=== PATIENT | female | born 1980 | race African-American/Black ===

== ENCOUNTER 2019-04-18 16:45 | Emergency (ER) | payer BC ==
--- NOTE | 2019-04-18 17:02 | ER Document Report ---
ED Medical Screen (RME) - General Chief Complaint: Abdominal Pain Stated Complaint: ABDOMINAL PAIN,VAGINAL BLEEDING Time Seen by Provider: 04/18/19 16:56 Primary Care Provider: DANAE ROMERO MD [Primary Care Provider] - Follow up as needed Notes: 38-year-old female presents to ED for complaint of lower abdominal pain. She stated the pain was very bad in her lower abdomen and that she felt like she had to go to the bathroom. She went to the bathroom and she had stool that was kind of a reddish color. She thought it was just the Bernardo-Aid that she drink and did not think anything of it. She stated then at 6 PM she noticed again that the stool was red was wondering why the Bernardo-Aid was still color in her stool. She states every time she is gone to the bathroom since then it is still been red now when she wipes her bottom the paper is light pink and she has become more concerned because she knows the Bernardo-Aid cannot stain her stool this long. She states the pain is pretty severe. States her pain level is a 4 and sharp. She states she is used to abdominal pain cramping with her cycle but this is very sharp. Not had any colonoscopies in the past. Friday night on the way home from work she felt nauseated and vomited has not been sick since then. I have greeted and performed a rapid initial assessment of this patient. A comprehensive ED assessment and evaluation of the patient, analysis of test results and completion of medical decision making process will be conducted by an additional ED providers. TRAVEL OUTSIDE OF THE [place] IN LAST 30 DAYS: No - Related Data Allergies/Adverse Reactions: Sulfa (Sulfonamide Antibiotics) Allergy (Verified 05/04/14 09:04) Past Medical History Neurological Medical History: Reports: Hx Migraine - Immunizations Hx Diphtheria, Pertussis, Tetanus Vaccination: Yes Doctor's Discharge - Discharge Referrals: DANAE ROMERO MD [Primary Care Provider] - Follow up as needed
[2019-04-18] MEDS ORDERED: NORMAL SALINE 1000 ML 1,000 ML IV ONE (17:36)
[2019-04-18 17:50] LABS: ABSOLUTE LYMPHOCYTES (AUTO) 1.6 10^3/uL (0.5-4.7); ABSOLUTE MONOCYTES (AUTO) 0.5 10^3/uL (0.1-1.4); BASOPHILS % (AUTO) 0.3 % (0-2); EOSINOPHILS % (AUTO) 0.4 % (0-6); HEMATOCRIT 31.5 % (36.0-47.0); HEMOGLOBIN 10.3 g/dL (12.0-15.5); LYMPHOCYTES % (AUTO) 19.4 % (13-45); MEAN CORPUSCULAR HEMOGLOBIN 26.8 pg (27.0-33.4); MEAN CORPUSCULAR HGB CONC 32.7 g/dL (32.0-36.0); MEAN CORPUSCULAR VOLUME 82 fl (80-97); MONOCYTES % (AUTO) 6.2 % (3-13); PLATELET COUNT 368 10^3/uL (150-450); RED BLOOD COUNT 3.84 10^6/uL (3.72-5.28); RED CELL DISTRIBUTION WIDTH 15.2 % (11.5-14.0); SEGMENTED NEUTROPHILS % (AUTO) 73.7 % (42-78); TOTAL CELLS COUNTED % (AUTO) 100 %; WHITE BLOOD COUNT 8.2 10^3/uL (4.0-10.5)
[2019-04-18 17:51] LABS: INTERNATIONAL RATION (INR) 1.04; PROTHROMBIN TIME 13.6 SEC (11.4-15.4)
[2019-04-18 17:52] LABS: PARTIAL THROMBOPLASTIN TIME 22.7 SEC (23.5-35.8)
[2019-04-18 18:02] LABS: ALBUMIN 4.3 g/dL (3.5-5.0); ALKALINE PHOSPHATASE 63 U/L (38-126); ANION GAP 9 (5-19); ASPARTATE AMINO TRANSFERASE 23 U/L (14-36); BILIRUBIN,TOTAL 0.4 mg/dL (0.2-1.3); BLOOD UREA NITROGEN 7 mg/dL (7-20); CALCIUM 9.1 mg/dL (8.4-10.2); CARBON DIOXIDE 28 mmol/L (22-30); CHLORIDE 102 mmol/L (98-107); GLUCOSE 111 mg/dL (75-110); POTASSIUM 3.8 mmol/L (3.6-5.0); TOTAL PROTEIN 7.8 g/dL (6.3-8.2)
--- NOTE | 2019-04-18 18:21 | ER Document Report ---
ED GI/ - General Chief Complaint: Abdominal Pain Stated Complaint: ABDOMINAL PAIN,VAGINAL BLEEDING Time Seen by Provider: 04/18/19 17:18 Primary Care Provider: DANAE ROMERO MD [Primary Care Provider] - Follow up as needed MAGAN WHITT MD [ACTIVE STAFF] - Follow up as needed APPLE CHANEL MD [ACTIVE STAFF] - Follow up as needed VELIA BARTON MD [ACTIVE STAFF] - Follow up as needed Mode of Arrival: Ambulatory Information source: Patient Notes: Patient presents complaining of diarrhea that started last night. Patient states that she was having bowel movements about every 30 minutes. Patient states that when she was sleeping she not have any diarrhea symptoms although when she woke up today she continued to have them about every 30 minutes. Patient states that now she has had pelvic cramping prior to having bowel movements that are mostly blood. Patient does report feeling dizzy. Patient denies any fever or urinary symptoms. Patient denies any nausea or vomiting. Patient denies any previous history of any hemorrhoids or inflammatory bowel disease. TRAVEL OUTSIDE OF THE [place] IN LAST 30 DAYS: No - HPI Patient complains to provider of: Abdominal pain, Diarrhea. No: Vomiting Onset: Yesterday Timing/Duration: Waxing and waning Quality of pain: Cramping Pain Level: 2 Location: Pelvis Associated symptoms: Blood in stool, Diarrhea. 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 denies: Fever, Recent illness EENT: No symptoms reported Cardiovascular: Dizziness. denies: Chest pain, Palpitations, Heart racing, Syncope, Lightheaded Respiratory: No symptoms reported Gastrointestinal: Abdominal pain, Diarrhea, Blood streaked bowels. denies: Nausea, Vomiting, Constipation, Black stools Genitourinary: No symptoms reported. denies: Dysuria, Flank pain Female Genitourinary: No symptoms reported. denies: Vaginal discharge, Vaginal bleeding Musculoskeletal: No symptoms reported. denies: Back pain Skin: No symptoms reported Hematologic/Lymphatic: No symptoms reported. denies: Blood clots, Easy bleeding, Easy bruising Neurological/Psychological: No symptoms reported. denies: Weakness Physical Exam - Vital signs Vitals: Temp Pulse Resp BP Pulse Ox 99.3 F 82 20 144/76 H 100 04/18/19 17:02 04/18/19 17:02 04/18/19 17:02 04/18/19 17:02 04/18/19 17:02 - General General appearance: Appears well, Alert In distress: None - HEENT Head: Normocephalic, Atraumatic Eyes: Normal Conjunctiva: Normal Nasal: Normal Mouth/Lips: Normal Mucous membranes: Normal Neck: Normal, Supple. No: Lymphadenopathy - Respiratory Respiratory status: No respiratory distress Chest status: Nontender Breath sounds: Normal. No: Rales, Rhonchi, Stridor, Wheezing Chest palpation: Normal - Cardiovascular Rhythm: Regular Heart sounds: S1 appreciated, S2 appreciated - Abdominal Inspection: Normal Distension: No distension Bowel sounds: Normal Tenderness: Nontender Organomegaly: No organomegaly - Rectal Tenderness: No Stool: See lab result. No: Bloody Hemorrhoids: None Notes: SAL Liriano as standby - Back Back: Normal, Nontender. No: CVA tenderness - Extremities General upper extremity: Normal inspection, Normal strength General lower extremity: Normal inspection, Normal strength - Neurological Neuro grossly intact: Yes Cognition: Normal Dickinson Coma Scale Eye Opening: Spontaneous Dickinson Coma Scale Verbal: Oriented Dickinson Coma Scale Motor: Obeys Commands Emerita Coma Scale Total: 15 - Psychological Associated symptoms: Normal affect, Normal mood - Skin Skin Temperature: Warm Skin Moisture: Dry Skin Color: Normal Course - Re-evaluation Re-evalutation: 04/18/19 18:00 On repeat exam patient's abdomen is soft, nontender. Patient has not had any additional bloody stools at this time. 04/18/19 19:[address] Mckeon regarding patient presentation and diagnostic evaluation. Patient with stable vital signs and an H&H at this time. Dr. Mckeon agrees with symptomatic management and plan for discharge at this time. Discussed plan of care with patient, patient became upset as she is concerned about her pelvic cramping. Patient states that she only has intermittent cramping about every 30 to 40 minutes and then it resolves after she has a stool. Patient presents with likely diarrheal illness. Patient without any other abnormal bleeding or bruising. Patient without any nausea or vomiting, and abdominal tenderness is intermittent and is only prior to diarrhea episodes. Discussed with patient that I have low suspicion that she has any type of inflammatory bowel presentation, no concern for obstruction or appendicitis. No concern for diverticulitis or abscess at this time. Patient without any anal fissure, obvious internal hemorrhoid, external hemorrhoid or perianal abscess. Patient encouraged to follow-up with a software test analyst for any persistent problems. Patient encouraged to return immediately for any concerns about dehydration, increased blood in stool, fever, vomiting or any new or worrisome symptoms. 04/18/19 19:28 Patient with leukocyte esterase, white blood cells and small amount of blood noted on urinalysis. Patient does have lower pelvic tenderness and would like antibiotic for the urine at this time. Will obtain urine culture as well. 04/18/19 19:35 Patient refused to take the Imodium here. Provider to bedside to explain rationale for ordering this medication. Patient refused to make eye contact at this time. Attempted to discuss with patient rationale for medications that were ordered. Offered to have another provider come and evaluate patient and speak with her about any of her concerns at this time, patient declines. Again consulted with Dr. Mckeon regarding patient presentation, labs, vital signs and evaluation reviewed. No additional testing advised at this time. 04/18/19 20:23 Wrong pharmacy was entered whenever patient's initial prescription was E scribed. RN states that she will call the pharmacy to cancel the initial prescription. Patient's prescription was reentered and E scribed to her requested pharmacy. - Vital Signs Vital signs: Temp Pulse Resp BP Pulse Ox 98.8 F 77 16 123/79 100 04/18/19 19:04 04/18/19 19:04 04/18/19 19:04 04/18/19 19:04 04/18/19 19:04 - Laboratory Result Diagrams: 04/18/19 17:19 04/18/19 17:19 Laboratory results interpreted by me: 04/18/19 04/18/19 04/18/19 17:14 17:19 17:19 Hgb 10.3 L Hct 31.5 L MCH 26.8 L RDW 15.2 H APTT 22.7 L Glucose 111 H Urine Protein Urine Blood Leukocyte Esterase Rfl 04/18/19 18:20 Hgb Hct MCH RDW APTT Glucose Urine Protein 30 H Urine Blood SMALL H Leukocyte Esterase Rfl SMALL H 04/18/19 19:22 Labs- Entire Visit 04/18/19 04/18/19 04/18/19 17:14 17:19 17:19 WBC 8.2 RBC 3.84 Hgb 10.3 L Hct 31.5 L MCV 82 MCH 26.8 L MCHC 32.7 RDW 15.2 H Plt Count 368 Lymph % (Auto) 19.4 [place] % (Auto) 6.2 Eos % (Auto) 0.4 Baso % (Auto) 0.3 Absolute Neuts (auto) 6.0 Absolute Lymphs (auto) 1.6 Absolute Monos (auto) 0.5 Absolute Eos (auto) 0.0 Absolute Basos (auto) 0.0 Seg Neutrophils % 73.7 PT 13.6 INR 1.04 APTT 22.7 L Sodium 138.6 Potassium 3.8 Chloride 102 Carbon Dioxide 28 Anion Gap 9 BUN 7 Creatinine 0.71 Est GFR ( Amer) > 60 Est GFR (MDRD) Non-Af > 60 Glucose 111 H Calcium 9.1 Total Bilirubin 0.4 Direct Bilirubin 0.0 Neonat Total Bilirubin Not Reportable Neonat Direct Bilirubin Not Reportable Neonat Indirect Bili Not Reportable AST 23 ALT 16 Alkaline Phosphatase 63 Total Protein 7.8 Albumin 4.3 Lipase 147.6 Serum HCG, Qual Urine Color Urine Appearance Urine pH Ur Specific Atkins Urine Protein Urine Glucose (UA) Urine Ketones Urine Blood Urine Nitrite (Reflex) Urine Bilirubin Urine Urobilinogen Leukocyte Esterase Rfl Urine RBC (Auto) U Hyaline Cast (Auto) Urine WBC (Reflex) Squamous Epi Cells Auto Urine Mucus (Auto) Urine Ascorbic Acid POC Stool Occult Blood Blood Type Antibody Screen 04/18/19 04/18/19 04/18/19 17:19 17:19 18:10 WBC RBC Hgb Hct MCV MCH MCHC RDW Plt Count Lymph % (Auto) [place] % (Auto) Eos % (Auto) Baso % (Auto) Absolute Neuts (auto) Absolute Lymphs (auto) Absolute Monos (auto) Absolute Eos (auto) Absolute Basos (auto) Seg Neutrophils % PT INR APTT Sodium Potassium Chloride Carbon Dioxide Anion Gap BUN Creatinine Est GFR ( Amer) Est GFR (MDRD) Non-Af Glucose Calcium Total Bilirubin Direct Bilirubin Neonat Total Bilirubin Neonat Direct Bilirubin Neonat Indirect Bili AST ALT Alkaline Phosphatase Total Protein Albumin Lipase Serum HCG, Qual NEGATIVE Urine Color Urine Appearance Urine pH Ur Specific Atkins Urine Protein Urine Glucose (UA) Urine Ketones Urine Blood Urine Nitrite (Reflex) Urine Bilirubin Urine Urobilinogen Leukocyte Esterase Rfl Urine RBC (Auto) U Hyaline Cast (Auto) Urine WBC (Reflex) Squamous Epi Cells Auto Urine Mucus (Auto) Urine Ascorbic Acid POC Stool Occult Blood POSITIVE Blood Type A POSITIVE Antibody Screen NEGATIVE 04/18/19 18:20 WBC RBC Hgb Hct MCV MCH MCHC RDW Plt Count Lymph % (Auto) [place] % (Auto) Eos % (Auto) Baso % (Auto) Absolute Neuts (auto) Absolute Lymphs (auto) Absolute Monos (auto) Absolute Eos (auto) Absolute Basos (auto) Seg Neutrophils % PT INR APTT Sodium Potassium Chloride Carbon Dioxide Anion Gap BUN Creatinine Est GFR ( Amer) Est GFR (MDRD) Non-Af Glucose Calcium Total Bilirubin Direct Bilirubin Neonat Total Bilirubin Neonat Direct Bilirubin Neonat Indirect Bili AST ALT Alkaline Phosphatase Total Protein Albumin Lipase Serum HCG, Qual Urine Color YELLOW Urine Appearance SLIGHTLY-CLOUDY Urine pH 5.0 Ur Specific Atkins 1.026 Urine Protein 30 H Urine Glucose (UA) NEGATIVE Urine Ketones NEGATIVE Urine Blood SMALL H Urine Nitrite (Reflex) NEGATIVE Urine Bilirubin NEGATIVE Urine Urobilinogen NEGATIVE Leukocyte Esterase Rfl SMALL H Urine RBC (Auto) 1 U Hyaline Cast (Auto) 1 Urine WBC (Reflex) 17 Squamous Epi Cells Auto 11 Urine Mucus (Auto) MANY Urine Ascorbic Acid NEGATIVE POC Stool Occult Blood Blood Type Antibody Screen Discharge - Discharge Clinical Impression: Blood in stool, Abdominal cramping Diarrhea Qualifiers: Diarrhea type: unspecified type Qualified Code(s): R19.7 - Diarrhea, unspecified UTI (urinary tract infection) Qualifiers: Urinary tract infection type: site unspecified Hematuria presence: with hematuria Qualified Code(s): N39.0 - Urinary tract infection, site not specified Condition: Stable Disposition: HOME, SELF-CARE Instructions: Antispasmodics ([facility]), Cephalexin ([facility]), Urinary Tract Infection ([facility]) Additional Instructions: Return immediately for any new or worsening symptoms: Fever, increased pain, increased stool frequency, increased blood in stool, vomiting, any concerns about dehydration or any new or worsening symptoms Followup with your primary care provider, call tomorrow to make a followup appointment You may need to follow-up with a software test analyst for any persistent concerns about blood in the stool Take Imodium naso-jde-sdeiums as directed to help with your diarrhea/loose stool symptoms DIARRHEA, NON-SPECIFIC: Diarrhea means frequent, watery stools. There are many causes. Any problem that keeps the intestinal tract from absorbing water from the stool can lead to diarrhea. A sudden new diarrhea problem is usually caused by a virus, food sensitivity, toxic bacteria, or drugs. In this case, we expect the problem to go away soon. Testing is done only if you seem seriously ill from the diarrhea. If you have chronic diarrhea, or diarrhea that keeps coming back, we need to find out why. Chronic diarrhea can be due to inflammation of the bowels such as Crohn's disease or ulcerative colitis, food sensitivity such as intolerance to lactose or wheat protein, irritable bowel syndrome, and other problems. If your diarrhea is a significant problem but it's not clear why you have it, we'll refer you to a specialist for further testing. During an episode of diarrhea, drink small amounts (two to six ounces) of clear liquids (soft drinks, sport drinks, herb teas, broth, etc). Take fluids frequently to prevent dehydration. It's usually not a problem to take mild anti- diarrhea medication such as Kaopectate or Pepto-Bismol. As the diarrhea eases, advance to small amounts of bland food (mashed potato, toast) for 24 hours. Call the physician if blood appears in your vomit or stool, if vomiting lasts longer than 24 hours, if the abdominal pain worsens or becomes localized to one area, if you develop high fever, or if you become lightheaded and weak. INTRAVENOUS (I V) FLUIDS: As part of your care today, you received intravenous (IV) fluids. IV fluids are administered to patients who are dehydrated or to those who have certain chemical (electrolyte) abnormalities that need correcting. FOLLOW-UP CARE: If you have been referred to a physician for follow-up care, call the physicians office for an appointment as you were instructed or within the next two days. If you experience worsening or a significant change in your symptoms, notify the physician immediately or return to the Emergency Department at any time for re-evaluation. Prescriptions: Dicyclomine HCl [Bentyl 20 mg Tablet] 20 mg PO QID PRN #12 tablet PRN Reason: Cephalexin Monohydrate [Keflex 500 mg Capsule] 500 mg PO Q6H 5 Days #10 capsule Referrals: DANAE ROMERO MD [Primary Care Provider] - Follow up as needed VELIA BARTON MD [ACTIVE STAFF] - Follow up as needed APPLE CHANEL MD [ACTIVE STAFF] - Follow up as needed MAGAN WHITT MD [ACTIVE STAFF] - Follow up as needed
[2019-04-18 18:44] LABS: APPEARANCE,URINE SLIGHTLY-CLOUDY; BILIRUBIN,URINE NEGATIVE (NEGATIVE); COLOR,URINE YELLOW; GLUCOSE, URINE NEGATIVE (NEGATIVE); KETONES,URINE NEGATIVE (NEGATIVE); PROTEIN,URINE 30 mg/dL (NEGATIVE); URINE SPECIFIC GRAVITY 1.026; UROBILINOGEN,URINE NEGATIVE mg/dL (<2.0)
[2019-04-18 19:06] VITALS: BP 123/79
[2019-04-18] MEDS ORDERED: DICYCLOMINE HCL 20 MG TABLET PO ONE (19:12)
[2019-04-18] MEDS: LOPERAMIDE HCL 2 MG CAPSULE PO ONE ×2 (19:29→19:34)
[2019-04-18 23:04] LABS: C DIFFICILE GDH NEGATIVE (NEGATIVE)
== END 2019-04-18 20:23 | disposition home or self-care (01) ==
LOC: ER 16:45
DX: R19.7 Diarrhea, unspecified (principal); K92.1 Melena; N39.0 Urinary tract infection, site not specified; R31.9 Hematuria, unspecified; R10.2 Pelvic and perineal pain; R42 Dizziness and giddiness; Z88.2 Allergy status to sulfonamides
CPT/HCPCS: 99284; 96360; 86900; 86901; 36415; 87045; 87086; 89055; 87205; 86850; 83690; 84703; 85025; 85610; 85730; 87088; 80053; 81001; 87324; 87449; J3490; J7030

== ENCOUNTER 2019-11-08 07:52 | Day surgery (SDC) | payer BC ==
--- NOTE | 2019-11-03 13:54 | RADIOLOGY REPORT (SQ) ---
EXAM DESCRIPTION: CHEST PA/LATERAL IMAGES COMPLETED DATE/TIME: 11/03/2019 1:44 pm REASON FOR STUDY: PRE-OP COMPARISON: None. EXAM PARAMETERS: NUMBER OF VIEWS: two views TECHNIQUE: Digital Frontal and Lateral radiographic views of the chest acquired. RADIATION DOSE: NA LIMITATIONS: none FINDINGS: LUNGS AND PLEURA: No opacities, masses or pneumothorax. No pleural effusion. MEDIASTINUM AND HILAR STRUCTURES: No masses or contour abnormalities. HEART AND VASCULAR STRUCTURES: Heart normal size. No evidence for failure. BONES: No acute findings. HARDWARE: None in the chest. OTHER: No other significant finding. IMPRESSION: NO SIGNIFICANT RADIOGRAPHIC FINDING IN THE CHEST. TECHNICAL DOCUMENTATION: JOB ID: [id number] 2010 [employer]- All Rights Reserved Reading location - IP/workstation name: [email or web address]
[2019-11-03 14:22] LABS: HEMATOCRIT 26.6 % (36.0-47.0); HEMOGLOBIN 8.7 g/dL (12.0-15.5); MEAN CORPUSCULAR HEMOGLOBIN 24.8 pg (27.0-33.4); MEAN CORPUSCULAR HGB CONC 32.7 g/dL (32.0-36.0); MEAN CORPUSCULAR VOLUME 76 fl (80-97); PLATELET COUNT 397 10^3/uL (150-450); RED BLOOD COUNT 3.52 10^6/uL (3.72-5.28); RED CELL DISTRIBUTION WIDTH 16.9 % (11.5-14.0)
[2019-11-03 14:29] LABS: APPEARANCE,URINE SLIGHTLY-CLOUDY; BILIRUBIN,URINE NEGATIVE (NEGATIVE); COLOR,URINE YELLOW; GLUCOSE, URINE NEGATIVE (NEGATIVE); KETONES,URINE NEGATIVE (NEGATIVE); LEUKOCYTE ESTERASE,URINE TRACE (NEGATIVE); NITRITE,URINE NEGATIVE (NEGATIVE); PROTEIN,URINE 30 mg/dL (NEGATIVE); URINE SPECIFIC GRAVITY 1.025; UROBILINOGEN,URINE NEGATIVE mg/dL (<2.0)
[2019-11-03 14:43] LABS: ALBUMIN 4.1 g/dL (3.5-5.0); ALKALINE PHOSPHATASE 58 U/L (38-126); ANION GAP 9 (5-19); ASPARTATE AMINO TRANSFERASE 29 U/L (14-36); BILIRUBIN,DIRECT 0.2 mg/dL (0.0-0.4); BILIRUBIN,TOTAL 0.4 mg/dL (0.2-1.3); BLOOD UREA NITROGEN 11 mg/dL (7-20); CALCIUM 9.4 mg/dL (8.4-10.2); CARBON DIOXIDE 26 mmol/L (22-30); CHLORIDE 103 mmol/L (98-107); GLUCOSE 98 mg/dL (75-110); POTASSIUM 4.3 mmol/L (3.6-5.0); TOTAL PROTEIN 7.3 g/dL (6.3-8.2)
--- NOTE | 2019-11-03 14:45 | EKG REPORT ---
SEVERITY:- NORMAL ECG - SINUS RHYTHM : Confirmed by: Rowan Candelaria MD 03-Nov-2019 14:45:01
[~2019-11-08 07:52] MED LIST: CEFAZOLIN 2 GM/D5W RTU 2 GM/50 ML RTUPB IV PRN; LACTATED RINGERS 1000 ML IV PRN; LIDOCAINE 0.5% INJ-PF (5 MG/ML) 50 ML SDV SUBCUT PRN; RINGERS SOLUTION,LACTATED 1,000 ML IV PRN
[2019-11-08] MEDS ORDERED: CEFAZOLIN 2 GM/D5W RTU 2 GM/50 ML RTUPB IV ONE (07:58)
[2019-11-08] MEDS ORDERED: FENTANYL CITRATE INJ/PF 250 MCG/5 ML AMPULE ONE (10:14)
[2019-11-08] MEDS ORDERED: MIDAZOLAM 2 MG/2 ML INJ ONE (10:14)
[2019-11-08] MEDS ORDERED: HYDROMORPHONE HCL INJ/PF 2 MG/ML AMPULE ONE (10:14)
[2019-11-08] MEDS ORDERED: PROPOFOL INJ 200 MG/20 ML VIAL IV ONE ×2 (10:15→13:04)
[2019-11-08] MEDS ORDERED: HYDROMORPHONE HCL INJ/PF 2 MG/ML AMPULE IV PRN (11:07)
[2019-11-08] MEDS ORDERED: DIPHENHYDRAMINE HCL 50 MG/ML VIAL IV PRN (11:07)
[2019-11-08] MEDS ORDERED: PROMETHAZINE HCL INJ 25 MG/1 ML VIAL IV PRN ×2 (11:07)
[2019-11-08] MEDS ORDERED: FENTANYL CITRATE INJ/PF 100 MCG/2 ML AMPUL IV PRN ×3 (11:07)
[2019-11-08] MEDS ORDERED: MEPERIDINE HCL/PF INJ 25 MG/1 ML DISP.SYRIN IV PRN (11:07)
--- NOTE | 2019-11-08 12:47 | Operative Report ---
Operative Report DATE OF SURGERY: 11/08/19 Operative Report: Robotic assisted hysterectomy bilateral salpingectomy PREOPERATIVE DIAGNOSIS: Menorrhagia fibroids POSTOPERATIVE DIAGNOSIS: Same OPERATION: Robotic assisted hysterectomy salpingectomy SURGEON: KOREY WILSON ANESTHESIA: GA TISSUE REMOVED OR ALTERED: Uterus and tubes ESTIMATED BLOOD LOSS: Approximately 100 cc INTRAOPERATIVE FINDINGS: Large fibroid uterus PROCEDURE: Patient placed in a dorsal lithotomy position prepped draped sterile fashion. The speculum placed cervix visualized grasped single-tooth tenaculum and sounded to a depth of 12 cm. The V care was then placed per protocol. Speculum was removed. Attention turned in abdomen where a supraumbilical incision was made trocar was introduced with insufflation of the abdomen. First appeared to be large from fibroids. Second third punctures were made lateral to the midline on the left and right 5 trochars were introduced an accessory port was inserted lateral and superior to the first port. Was docked in the usual fashion. Using bipolar monopolar cautery the right utero-ovarian ligament was identified and divided the tube was removed by dividing along the mesosalpinx with monopolar and bipolar cautery. The right lower broad ligament was continued to be caute rized and divided down to the ascending branch of the uterine artery on the right. This procedure P on the left with the utero-ovarian ligament being cauterized and divided and the tube being removed by dividing along the mesosalpinx with both monopolar and bipolar cautery. Divided down to the ascending branch of the uterine artery on the left. Bladder flap was created with blunt sharp dissection. Cervix sharply circumscribed from approximately 9:00 to 3:00. Uterus could not be elevated sufficiently to see the posterior aspect of the uterus. The robot was undocked and attention turned to the pelvis. The V care was removed. Speculum placed cervix visualized grasped single-tooth tenaculum posterior parietoperitoneum sutured the posterior cuff with 2-0 Vicryl. Left uterosacral clamped divided suture 2-0 Vicryl can be on the right. Serial clamps were then used on each side of the uterus and to the above incisions were encountered. Uterus had to be morcellated to remove it through the vagina secondary to size. After the uterus and 2 were removed the pedicles were inspected hemostasis was noted and the vaginal cuff was closed with interrupted suture 2-0 Vicryl. Tension was turned back to the abdomen which was reinflated and pelvis irrigated with normal saline hemostasis was noted. Trocar sleeves removed after deflating the abdomen. This is a closed with 4-0 Vicryl subcu. Patient's urine remained clear that procedure and she was taken recovery in good condition.
[2019-11-08] MEDS ORDERED: OXYCODONE-ACETAMINOPHEN 5-325 MG TABLET PO PRN (13:16)
[2019-11-08] MEDS ORDERED: ONDANSETRON HCL 8 MG TABLET PO PRN (13:17)
[2019-11-08] MEDS ORDERED: MORPHINE SULFATE 10 MG/ML INJ IM PRN (13:17)
[2019-11-08] MEDS ORDERED: ONDANSETRON 4 MG TAB.RAPDIS PO PRN (14:25)
[2019-11-08] MEDS ORDERED: DEXAMETHASONE SOD PHOSPHATE INJ 4 MG/1 ML VIAL ONE (14:55)
[2019-11-08] MEDS ORDERED: KETOROLAC TROMETHAMINE 60 MG/2 ML SDV ONE (14:55)
[2019-11-08] MEDS ORDERED: ROCURONIUM BROMIDE INJ 50 MG/5 ML VIAL IV ONE (14:55)
[2019-11-08] MEDS ORDERED: ONDANSETRON HCL INJ/PF 4 MG/2 ML SDV ONE (14:55)
[2019-11-08] MEDS ORDERED: NEOSTIGMINE METHYLSULFATE 10 MG/10 ML VIAL ONE (14:55)
[2019-11-08] MEDS ORDERED: GLYCOPYRROLATE 1 MG/5 ML VIAL ONE (14:55)
[2019-11-08] MEDS: IBUPROFEN 800 MG TABLET PO SCH ×2 (15:24→18:44)
[2019-11-08 19:42] VITALS: BP 129/73
== END 2019-11-08 21:57 | disposition home or self-care (01) ==
LOC: OROUT 07:52 → 2N 13:05 → OROUT 21:57
PROVIDERS: ATTEND Obstetrics & Gynecology Gynecology
DX: N93.9 Abnormal uterine and vaginal bleeding, unspecified (principal); D25.9 Leiomyoma of uterus, unspecified; N72 Inflammatory disease of cervix uteri; N83.8 Other noninflammatory disorders of ovary, fallopian tube and broad ligament; Z88.2 Allergy status to sulfonamides; Z03.818 Encounter for observation for suspected exposure to other biological agents ruled out
CPT/HCPCS: 58573; S2900; 36415; 71046; 80053; 81001; 81025; 840; 85027; 86850; 86900; 86901; 87635; 88307; 93005; 93010; C1758; C9803; J0690; J1100; J1170; J1885; J2250; J2405; J2704; J2710; J3010; J3490; S0119